=== PATIENT | female | born 1990 | race Two or more races ===

== ENCOUNTER 2016-07-28 13:29 | Emergency (ER) | payer OTHER ==
[~2016-07-28] VITALS: Ht 154.9 cm; Wt 54.4 kg
[2016-07-28 14:15] VITALS: BP 103/62
[2016-07-28] MEDS ORDERED: LIDO20SO PO (15:24)
--- NOTE | 2016-07-28 15:25 | PHYS DOC ---
Past Medical History Past Medical History: No Pertinent History Past Surgical History: No Surgical History Alcohol Use: None Drug Use: None Adult General Chief Complaint Chief Complaint: SORE THROAT HPI HPI Patient is a 26 year old female who presents with sore throat and subjective fever since yesterday. Patient is in the ED with 3 other family members with the same complaint. Review of Systems Review of Systems Constitutional: Subjective fever Eyes: Denies change in visual acuity, redness, or eye pain [] HENT: sore throat [] Respiratory: Denies cough or shortness of breath [] Cardiovascular: No additional information not addressed in HPI [] GI: Denies abdominal pain, nausea, vomiting, bloody stools or diarrhea [] : Denies dysuria or hematuria [] Musculoskeletal: Denies back pain or joint pain [] Integument: Denies rash or skin lesions [] Neurologic: Denies headache, focal weakness or sensory changes [] Endocrine: Denies polyuria or polydipsia [] Allergies Allergies Allergies Coded Allergies Type Severity Reaction Last Updated Verified No Known Drug Allergies 07/28/16 No Physical Exam Physical Exam Constitutional: Well developed, well nourished, no acute distress, non-toxic appearance. [] HENT: Normocephalic, atraumatic, bilateral external ears normal, oropharynx moist, no oral exudates, nose normal. [] Eyes: PERRLA, EOMI, conjunctiva normal, no discharge. [] Neck: Normal range of motion, no tenderness, supple, no stridor. [] Cardiovascular:Heart rate regular rhythm, no murmur [] Lungs & Thorax: Bilateral breath sounds clear to auscultation [] Abdomen: Bowel sounds normal, soft, no tenderness, no masses, no pulsatile masses. [] Skin: Warm, dry, no erythema, no rash. [] Back: No tenderness, no CVA tenderness. [] Extremities: No tenderness, no cyanosis, no clubbing, ROM intact, no edema. [] Neurologic: Alert and oriented X 3, normal motor function, normal sensory function, no focal deficits noted. [] Psychologic: Affect normal, judgement normal, mood normal. [] Current Patient Data Vital Signs Vital Signs Date Time Temp Pulse Resp B/P Pulse Ox O2 Delivery O2 Flow Rate FiO2 07/28/16 14:15 98.2 104 20 99 Room Air 98.2 EKG EKG [] Radiology/Procedures Radiology/Procedures [] Course & Med Decision Making Course & Med Decision Making Pertinent Labs and Imaging studies reviewed. (See chart for details) This is a well-appearing patient in the ED with complaint of sore throat and subjective fevers. Patient is afebrile. Symptoms are viral. Recommended Tylenol/ Motrin for fever or pain. Saltwater gargles recommended. Throat. Follow-up with primary care doctor in one week. Dragon Disclaimer Dragon Disclaimer This electronic medical record was generated, in whole or in part, using a voice recognition dictation system. Departure Departure Impression: Primary Impression: Fever Additional Impression: Viral pharyngitis Disposition: HOME, SELF-CARE Condition: STABLE Referrals: JULITO DOAN MD (PCP) Follow-up with your own doctor in one week Patient Instructions: Viral Pharyngitis Additional Instructions: You were seen for viral pharyngitis and subjective fevers. Take Tylenol/ Motrin for fever. Use saltwater gargles. Take the prescribed medicines as needed. Follow-up with your own doctor in one week, come back to the emergency room if worsening or concerning symptoms. Scripts Lidocaine Hcl (Lidocaine Hcl Viscous)20 Mg/1 Ml Solution5 Ml PO TID #100 ML Prov:DONTA ARROYO APRN 07/28/16 Problem Qualifiers Primary Impression: Fever Fever type: unspecified Qualified Code: R50.9 - Fever, unspecified DONTA ARROYO APRN Jul 28, 2016 15:25
== END 2016-07-28 15:41 | disposition home or self-care (01) ==
LOC: ER 13:29
DX: J02.8 Acute pharyngitis due to other specified organisms (principal); B97.89 Other viral agents as the cause of diseases classified elsewhere; R50.9 Fever, unspecified
CPT/HCPCS: 99283

== ENCOUNTER 2018-01-23 13:11 | Emergency (ER) | payer OTHER ==
[~2018-01-23] VITALS: Ht 157.5 cm; Wt 54.4 kg
[~2018-01-23 13:11] MED LIST: LIDO20SO PO
[2018-01-23] MEDS ORDERED: AMOX1TAB61 PO (14:19)
--- NOTE | 2018-01-23 14:19 | PHYS DOC ---
Past Medical History Past Medical History: No Pertinent History Past Surgical History: No Surgical History Alcohol Use: None Drug Use: None Adult General Chief Complaint Chief Complaint: SORE THROAT HPI HPI Patient is a 27 year old male who presents to the emergency room with complaints of a sore throat for the last 5 days. In addition, she complains of a cough with yellow thick mucus produced, headaches, and runny nose for the last 7-10 days. She denies any ear pain, body aches, fatigue, rash, shortness of breath, wheezing, vision changes, nausea, vomiting, or diarrhea. She states that she has been feverish at night for the last 5 days, however she has not measured her temperature. Review of Systems Review of Systems Constitutional: Denies chills, reports tactile fevers at night [] Eyes: Denies change in visual acuity, redness, or eye pain [] HENT: Denies nasal congestion, reports sore throat with runny nose for the last 5 days[] Respiratory: Denies wheezing or shortness of breath; reports productive cough with thick yellow mucus produced for the last 7-10 days [] Cardiovascular: As chest pain GI: Denies abdominal pain, nausea, vomiting, or diarrhea [] Musculoskeletal: Denies back pain or joint pain [] Integument: Denies rash or skin lesions [] Neurologic: Denies focal weakness or sensory changes; reports frontal headache for the last 7-10 days off-and-on [] All other systems were reviewed and found to be within normal limits, except as documented in this note. Allergies Allergies Allergies Coded Allergies Type Severity Reaction Last Updated Verified No Known Drug Allergies 07/28/16 No Physical Exam Physical Exam Constitutional: Well developed, well nourished, no acute distress, non-toxic appearance. [] HENT: Normocephalic, atraumatic, bilateral external ears normal, bilateral TMs are normal, cobblestone appearance of posterior pharynx with thick yellow postnasal drainage, oropharynx moist, no oral exudates, 1+ tonsils bilaterally, tenderness to palpation of frontal sinuses bilaterally, nose normal. [] Eyes: PERRLA, conjunctiva normal, no discharge. [] Neck: Normal range of motion, no tenderness, supple, no stridor. [] Cardiovascular:Heart rate regular rhythm, no murmur [] Lungs & Thorax: Bilateral breath sounds clear to auscultation [] Skin: Warm, dry, no erythema, no rash. [] Extremities: No tenderness, no cyanosis, no edema. [] Neurologic: Alert and oriented X 3, normal motor function, normal sensory function, no focal deficits noted. [] Psychologic: Affect normal, judgement normal, mood normal. [] EKG EKG [] Radiology/Procedures Radiology/Procedures [] Course & Med Decision Making Course & Med Decision Making Pertinent Labs and Imaging studies reviewed. (See chart for details) Patient is a 27-year-old female who presented to the emergency room with complaints of sore throat, cough, headaches, and tactile fever. VSS, clinically she presents as sinusitis, treated as such. Patient verbalized an understanding of home care, follow-up, prescription, and return to ER instructions with no further questions or concerns. [] Dragon Disclaimer Dragon Disclaimer This electronic medical record was generated, in whole or in part, using a voice recognition dictation system. Departure Departure Impression: Primary Impression: Acute sinusitis, unspecified Disposition: 01 HOME, SELF-CARE Condition: STABLE Referrals: NO PCP (PCP) Patient Instructions: Sinusitis, [id number] Additional Instructions: Fill prescription and use as directed. You may take [id number] cough medication as needed for relief of your cough. Increase clear fluids. Follow-up with your primary care doctor in the next 1-2 days. Return to the emergency room if her symptoms worsen. Scripts Amoxicillin/Potassium Clav (AUGMENTIN 875-125 TABLET) 1 Each Tablet 1 TAB PO BID for 10 Days, #20 TAB Prov: GINA CORREA APRN 01/23/18 GINA CORREA APRN Jan 23, 2018 14:19
[2018-01-23 14:26] VITALS: BP 100/58
== END 2018-01-23 15:12 | disposition home or self-care (01) ==
LOC: ER 13:11
DX: J01.90 Acute sinusitis, unspecified (principal)
CPT/HCPCS: 99283

== ENCOUNTER 2018-09-24 13:48 | Emergency (ER) | payer OTHER ==
[~2018-09-24] VITALS: Ht 154.9 cm; Wt 54.4 kg
[~2018-09-24 13:48] MED LIST changes: +AMOX1TAB61 PO
[2018-09-24 14:15] VITALS: BP 95/54
--- NOTE | 2018-09-24 14:42 | PHYS DOC ---
Past Medical History Past Medical History: No Pertinent History Past Surgical History: No Surgical History Alcohol Use: None Drug Use: None Adult General Chief Complaint Chief Complaint: SORE THROAT HPI HPI Patient is a 28 year old female with no significant medical history who presents to the ED today complaining of sore throat and subjective fevers for 4- 5 days. Patient denies any cough or congestion. Review of Systems Review of Systems Constitutional: Reports subjective fevers Eyes: Denies change in visual acuity, redness, or eye pain [] HENT: Reports sore throat. Denies nasal congestion Respiratory: Denies cough or shortness of breath [] Cardiovascular: No additional information not addressed in HPI [] GI: Denies abdominal pain, nausea, vomiting, bloody stools or diarrhea [] : Denies dysuria or hematuria [] Musculoskeletal: Denies back pain or joint pain [] Integument: Denies rash or skin lesions [] Neurologic: Denies headache, focal weakness or sensory changes [] All other systems were reviewed and found to be within normal limits, except as documented in this note. Allergies Allergies Allergies Coded Allergies Type Severity Reaction Last Updated Verified No Known Drug Allergies 07/28/16 No Physical Exam Physical Exam Constitutional: Well developed, well nourished, no acute distress, non-toxic appearance. [] HENT: Normocephalic, atraumatic, bilateral external ears normal, oropharynx moist, no oral exudates, nose normal. [] Eyes: PERRLA, EOMI, conjunctiva normal, no discharge. [] Neck: Normal range of motion, no tenderness, supple, no stridor. [] Cardiovascular:Heart rate regular rhythm, no murmur [] Lungs & Thorax: Bilateral breath sounds clear to auscultation [] Abdomen: Bowel sounds normal, soft, no tenderness, no masses, no pulsatile masses. [] Skin: Warm, dry, no erythema, no rash. [] Back: No tenderness, no CVA tenderness. [] Extremities: No tenderness, no cyanosis, no clubbing, ROM intact, no edema. [] Neurologic: Alert and oriented X 3, normal motor function, normal sensory function, no focal deficits noted. [] Psychologic: Affect normal, judgement normal, mood normal. [] Current Patient Data Vital Signs Vital Signs Date Time Temp Pulse Resp B/P (MAP) Pulse Ox O2 Delivery O2 Flow Rate FiO2 4/10/19 14:15 98.4 85 16 95/54 (68) 100 Room Air 98.4 EKG EKG [] Radiology/Procedures Radiology/Procedures [] Course & Med Decision Making Course & Med Decision Making Pertinent Labs and Imaging studies reviewed. (See chart for details) This is a 28-year-old female patient presenting to the ED today with sore throat and subjective fevers for 4-5 days. Negative rapid strep. Patient is afebrile in the ED. Symptoms are viral. Discharged to home. Instructed to take Tylenol/Motrin for pain or fever. Saltwater gargles recommended. Follow-up with primary care doctor in 1-2 weeks. Dragon Disclaimer Dragon Disclaimer This electronic medical record was generated, in whole or in part, using a voice recognition dictation system. Departure Departure Impression: Primary Impression: Viral pharyngitis Additional Impression: Fever Disposition: HOME, SELF-CARE Condition: STABLE Referrals: NO PCP (PCP) Follow-up with your doctor in 1-2 weeks. Patient Instructions: Fever, Viral Pharyngitis Additional Instructions: You were evaluated in the medicine for sore throat. Your strep test is negative , your symptoms currently could be viral or seasonal allergies. Continue taking the Ibuprofen or Tylenol as needed for pain or fever. Take Zyrtec or Claritin as well. Use saltwater gargles. Follow-up with your doctor in 1-2 weeks. Scripts Cetirizine Hcl (ZYRTEC) 10 Mg Tablet 1 TAB PO DAILY, #30 TAB 2 Refills Prov: DONTA ARROYO APRN 09/24/18 Problem Qualifiers Additional Impression: Fever Fever type: unspecified Qualified Codes: R50.9 - Fever, unspecified DONTA ARROYO [employer] Sep 24, 2018 14:42
[2018-09-24] MEDS ORDERED: CETI10TA22 PO (15:18)
== END 2018-09-24 15:23 | disposition home or self-care (01) ==
LOC: ER 13:48
DX: J02.8 Acute pharyngitis due to other specified organisms (principal); B97.89 Other viral agents as the cause of diseases classified elsewhere; R50.9 Fever, unspecified
CPT/HCPCS: 87070; 87880; 96365; 96375; 99283; 99284-25

== ENCOUNTER 2019-02-06 09:03 | Emergency (ER) | payer OTHER ==
[~2019-02-06] VITALS: Ht 157.5 cm; Wt 54.4 kg
[~2019-02-06 09:03] MED LIST changes: +CETI10TA22 PO
[2019-02-06 09:05] VITALS: BP 110/73
[2019-02-06] MEDS ORDERED: CEPH-264 PO (09:28)
[2019-02-06] MEDS ORDERED: PHEN-318 PO (09:28)
--- NOTE | 2019-02-06 09:28 | PHYS DOC ---
Past Medical History Past Medical History: No Pertinent History Past Surgical History: No Surgical History Alcohol Use: None Drug Use: None Adult General Chief Complaint Chief Complaint: FEVER HPI HPI 28-year-old female presents with 3 day history of dysuria with bilateral flank pain and subjective fever/chills. Patient reports her fever seems to occur only at night. Denies . Denies known trauma. Denies hematuria. Patient reports taking Tylenol prior to arrival. Review of Systems Review of Systems Constitutional: Denies fever or chills Eyes: Denies redness or eye pain HENT: Denies nasal congestion or sore throat Respiratory: Denies cough or shortness of breath Cardiovascular: Denies chest pain or palpitations GI: Reports suprapubic abdominal pain; denies nausea or vomiting : Denies dysuria or hematuria Musculoskeletal: Reports back/flank eye pain or joint pain Integument: Denies rash or skin lesions Neurologic: Denies headache, focal weakness or sensory changes Complete systems were reviewed and found to be within normal limits, except as documented in this note. Allergies Allergies Allergies Coded Allergies Type Severity Reaction Last Updated Verified No Known Drug Allergies 07/28/16 No Physical Exam Physical Exam Constitutional: Well developed, well nourished, no acute distress, non-toxic appearance HENT: Normocephalic, atraumatic, oropharynx moist Eyes: Conjunctiva normal, no discharge Neck: Normal range of motion, no tenderness, supple Cardiovascular: Heart rate normal, regular rhythm Lungs & Thorax: Bilateral breath sounds clear to auscultation, no wheezing Abdomen: Soft, very mild suprapubic tenderness to palpation Skin: Warm, dry, no erythema, no rash Back: No tenderness, minimal CVA tenderness Extremities: No tenderness, ROM intact, no edema Neurologic: Alert and oriented X 3, no focal deficits noted Psychologic: Affect normal, judgement normal Current Patient Data Vital Signs Vital Signs Date Time Temp Pulse Resp B/P (MAP) Pulse Ox O2 Delivery O2 Flow Rate FiO2 02/06/19 09:05 98.1 110 14 110/73 (85) 100 Room Air 98.1 Lab Values Laboratory Tests Test 02/06/19 09:20 02/06/19 09:22 Urine Collection Type Void Urine Color Yellow Urine Clarity Cloudy Urine pH 5.5 Urine Specific [place] 1.010 Urine Protein 30 mg/dL (NEG-TRACE) Urine Glucose (UA) Negative mg/dL (NEG) Urine Ketones (Stick) Negative mg/dL (NEG) Urine Blood Small (NEG) Urine Nitrite Positive (NEG) Urine Bilirubin Negative (NEG) Urine Urobilinogen Dipstick 0.2 mg/dL (0.2 mg/dL) Urine Leukocyte Esterase Large (NEG) Urine RBC Fobs /HPF (0-2) Urine WBC Tntc /HPF (0-4) Urine Squamous Epithelial Cells Few /LPF Urine Bacteria Moderate /HPF (0-FEW) POC Urine HCG, Qualitative Hcg negative (Negative) EKG EKG [] Radiology/Procedures Radiology/Procedures [] Course & Med Decision Making Course & Med Decision Making Pertinent Lab studies reviewed. (See chart for details) Patient presents with history of present illness and physical exam concerning for possible urinary tract infection/kidney infection. Patient does have some minimal flank pain. Symptomatic medication offered which patient declined until UA results. UA with signs of infection. Symptomatic treatment provided. Empiric antibiotics initiated. Patient stable for discharge with outpatient follow-up with PCP. Discussed findings and plan with patient, who acknowledges understanding and agreement. Dragon Disclaimer Dragon Disclaimer This electronic medical record was generated, in whole or in part, using a voice recognition dictation system. Departure Departure Impression: Primary Impression: Urinary tract infection Disposition: HOME, SELF-CARE Condition: STABLE Referrals: NO PCP (PCP) Patient Instructions: Urinary Tract Infection, [id number] Scripts Cephalexin (KEFLEX) 500 Mg Capsule 500 MG PO TID for 7 Days, #21 CAP Prov: ARTIE VASQUEZ DO 02/06/19 Phenazopyridine Hcl (PYRIDIUM) 200 Mg Tablet 200 MG PO TID PRN PRN for DYSURIA, #6 TAB Prov: ARTIE VASQUEZ DO 02/06/19 Problem Qualifiers Primary Impression: Urinary tract infection Urinary tract infection type: acute pyelonephritis Qualified Codes: N10 - Acute pyelonephritis ARTIE VASQUEZ DO Feb 06, 2019 09:28
[2019-02-06 09:31] LABS: BILIRUBIN,URINE NEGATIVE (NEG); CLARITY,URINE CLOUDY; COLOR,URINE YELLOW; NITRITE,URINE POSITIVE (NEG); PH,URINE 5.5; PROTEIN,URINE 30 mg/dL (NEG-TRACE); UROBILINOGEN,URINE 0.2 mg/dL (0.2 mg/dL)
[2019-02-06 09:38] LABS: BACTERIA,URINE MODERATE /HPF (0-FEW); RBC,URINE FOBS /HPF (0-2); SQUAMOUS EPITHELIAL CELL,UR FEW /LPF; WBC,URINE TNTC /HPF (0-4)
[2019-02-06] MEDS ORDERED: CEPHALEXIN 250 MG CAPSULE. PO ONE (10:15)
[2019-02-06] MEDS ORDERED: PHENAZOPYRIDINE 200 MG TABLET. PO ONE (10:15)
== END 2019-02-06 10:47 | disposition home or self-care (01) ==
LOC: ER 09:03
DX: N10 Acute pyelonephritis (principal)
CPT/HCPCS: 81001; 81025; 87086; 99283; 99284

== ENCOUNTER 2019-09-12 12:43 | Emergency (ER) | payer OTHER ==
[~2019-09-12] VITALS: Ht 157.5 cm; Wt 55.0 kg
[~2019-09-12 12:43] MED LIST changes: +CEPH-264 PO; -CETI10TA22 PO; +CETI10TA24 PO; +PHEN-318 PO
[2019-09-12 13:38] LABS: INFLUENZA A PATIENT NEGATIVE (NEGATIVE); INFLUENZA B PATIENT NEGATIVE (NEGATIVE)
--- NOTE | 2019-09-12 14:19 | PHYS DOC ---
Past Medical History Past Medical History: No Pertinent History Past Surgical History: No Surgical History Smoking Status: Never Smoker Alcohol Use: None Drug Use: None Adult General Chief Complaint Chief Complaint: SORE THROAT HPI HPI Patient is a 29 year old female who presents to the emergency department with complaints of a tactile fever and sore throat for the last 2 days. Patient denies taking her temperature, she does not have a thermometer. She reports that she took 2 Tylenol at approximately 10:00 this morning. She denies any known contact with anyone who has Covid-19, she denies any recent travel. Patient denies any cough, shortness of breath, nausea, vomiting, diarrhea, wheezing, chest pain, or palpitations. Review of Systems Review of Systems Complete ROS is negative unless otherwise noted in HPI. Allergies Allergies Allergies Coded Allergies Type Severity Reaction Last Updated Verified No Known Drug Allergies 07/28/16 No Physical Exam Physical Exam See Above Constitutional: Well developed, well nourished, no acute distress, non-toxic appearance. [] HENT: Normocephalic, atraumatic, bilateral external ears normal, oropharynx moist, no oral exudates, nose normal. [] Eyes: PERRLA, EOMI, conjunctiva normal, no discharge. [] Neck: Normal range of motion, no tenderness, supple, no stridor. [] Cardiovascular:Heart rate regular rhythm, no murmur [] Lungs & Thorax: Bilateral breath sounds clear to auscultation [] Skin: Warm, dry, no erythema, no rash. [] Extremities: No cyanosis, ROM intact, no edema. [] Neurologic: Alert and oriented X 3, no focal deficits noted. [] Psychologic: Affect normal, judgement normal, mood normal. [] Current Patient Data Vital Signs Vital Signs Date Time Temp Pulse Resp B/P (MAP) Pulse Ox O2 Delivery O2 Flow Rate FiO2 09/12/19 12:55 99.0 83 16 110/65 (80) 97 Room Air 99.0 Lab Values Laboratory Tests Test 09/12/19 12:56 Influenza Type A Antigen Negative (NEGATIVE) Influenza Type B Antigen Negative (NEGATIVE) EKG EKG [] Radiology/Procedures Radiology/Procedures [] Course & Med Decision Making Course & Med Decision Making Pertinent Labs and Imaging studies reviewed. (See chart for details) [] Dragon Disclaimer Dragon Disclaimer This electronic medical record was generated, in whole or in part, using a voice recognition dictation system. Departure Departure Impression: Primary Impression: URI (upper respiratory infection) Additional Impression: Pharyngitis, acute Disposition: 01 HOME, SELF-CARE Condition: STABLE Referrals: NO PCP (PCP) Patient Instructions: Upper Respiratory Infection, Adult, [id number], Viral and Bacterial Pharyngitis, [id number] Additional Instructions: Recommend warm salt water gargles as needed for relief of discomfort. Alternate Tylenol and ibuprofen as needed for fever/pain. Follow-up with primary care doctor if symptoms persist. Return to the ER if symptoms worsen. Thank you for visiting [facility]. We appreciate you trusting us with your care. If any additional problems come up please don't hesitate to return to visit us. Follow up with your primary care provider so they can plan additional care if needed and know about the problem that you had today. If symptoms worsen come back to the Emergency Department. Any concerning symptoms that start such as chest pain, shortness of air, weakness or numbness on one side of the body, running high fevers or any other concerning symptoms return to the ER. You have a viral syndrome which may include symptoms like muscle aches, fevers, chills, runny nose, cough, sneezing, sore throat, nausea, vomiting, or diarrhea. One of the potential viruses that you may have is SARS-CoV-2, the virus that causes COVID-19, also known as the Coronavirus. You are just as likely to have a different viral infection such as the common cold, flu, etc. Most patients with the Coronavirus have mild symptoms and recover on their own. Resting, staying hydrated, and sleep based on known cases can be helpful. As of todays visit, you are well enough to go home and treat your symptoms with oral fluids and over the counter medications. Coronavirus testing is not performed on most people with mild symptoms who are being discharged from the emergency department. If Coronavirus testing was performed today the results will not be available for possibly up to 3-4 days. If your result is positive you will be contacted. Please follow the following precautions at home: 1) Stay home except to get medical care. 2) As advised by the CDC, we recommend that you stay in your home and minimize contact with other people. We do not want you to spread the infection. 3) Those who are older or have significant medical issues may have more severe symptoms from this infection. We recommend self-isolation FOR AT LEAST 7 DAYS after your 1st day of symptoms. AFTER you feel better please wait AT LEAST ANOTHER WEEK before returning to regular activities and being around other people. 4) IF you become sicker and have difficulty breathing, chest pain, are unable to eat/drink, severe vomiting, diarrhea, or weakness you may need to return to the Emergency Department. 5) You should restrict activities outside of your home, except for getting medical care. DO NOT go to work, school, or public areas. Avoid using public transportation, ride sharing, or taxis. 6) Separate yourself from other people in your home. You should use a separate bathroom if possible. 7) Avoid sharing personal household items such as dishes, cups, eating utensils, towels, etc. 8) Clean all high touch surfaces every day (door knobs, counter tops, etc). Use a household cleaning spray or wipe per label instructions. 9) Clean your hands often. Wash your hands with soap and water for at least 20 seconds. 10) Cover your mouth and nose when you cough or sneeze. 11) Throw used tissues in the trash and immediately wash your hands. For additional resources please visit the CDC website or the [facility] ([phone]), you may also call 211 for further information. Problem Qualifiers Primary Impression: URI (upper respiratory infection) URI type: unspecified URI Qualified Codes: J06.9 - Acute upper respiratory infection, unspecified Additional Impression: Pharyngitis, acute Pharyngitis/tonsillitis etiology: unspecified etiology Qualified Codes: J02.9 - Acute pharyngitis, unspecified GINA CORREA APRN Sep 12, 2019 14:19
[2019-09-12 14:38] VITALS: BP 105/58
== END 2019-09-12 14:38 | disposition home or self-care (01) ==
LOC: ER 12:43
DX: J06.9 Acute upper respiratory infection, unspecified (principal); J02.9 Acute pharyngitis, unspecified; R50.9 Fever, unspecified
CPT/HCPCS: 87070; 87804; 87880; 99283

== ENCOUNTER 2020-02-23 11:14 | Emergency (ER) | payer OTHER ==
[~2020-02-23] VITALS: Ht 154.9 cm; Wt 54.5 kg
[~2020-02-23 11:14] MED LIST changes: -CETI10TA24 PO; +CETI10TA74 PO
[2020-02-23 11:41] LABS: BILIRUBIN,URINE NEGATIVE (NEG); CLARITY,URINE CLEAR; COLOR,URINE YELLOW; NITRITE,URINE NEGATIVE (NEG); PROTEIN,URINE NEGATIVE (NEG-TRACE); UROBILINOGEN,URINE 0.2 mg/dL (0.2 mg/dL)
--- NOTE | 2020-02-23 11:42 | PHYS DOC ---
Past Medical History Past Medical History: No Pertinent History Past Surgical History: No Surgical History Smoking Status: Never Smoker Alcohol Use: None Drug Use: None General Adult EDM: Chief Complaint: BACK PAIN OR INJURY HPI: HPI: Patient is a 29 year old female who presents with fever for 1 week she has had intermittent low back pain more so on the right side with sharp shooting pains that go down the back of her leg on the right side. 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 She states she does not remember injuring her back. She states it does hurt worse with standing and sitting and laying back. She states that she took Tylenol yesterday and it does help with the pain for a short period. She states that her past history is a urinary tract infection she would like to be sure that she does not have another infection. Patient denies abdominal pain, dysuria, nausea, vomiting, fever, diarrhea, headache, chest pain, shortness of breath, cough, numbness or tingling, loss of bowel or bladder, dizziness, focal weakness. She rates her discomfort at this time an 8 out of 10. She has not taken anything for her pain today. She states that she does not take any medications. Review of Systems: Review of Systems: Constitutional: Denies fever or chills. [] Eyes: Denies change in visual acuity. [] HENT: Denies nasal congestion or sore throat. [] Respiratory: Denies cough or shortness of breath. [] Cardiovascular: Denies chest pain or edema. [] GI: Denies abdominal pain, nausea, vomiting, bloody stools or diarrhea. [] : Denies dysuria. [] Musculoskeletal: Low back pain with radiation down the right back of leg or joint pain. [] Integument: Denies rash. [] Neurologic: Denies headache, focal weakness or sensory changes. [] Endocrine: Denies polyuria or polydipsia. [] Lymphatic: Denies swollen glands. [] Psychiatric: Denies depression or anxiety. [] Heart Score: Risk Factors: Risk Factors: DM, Current or recent (<one month) smoker, HTN, HLP, family history of CAD, obesity. Risk Scores: Score 0 - 3: 2.5% MACE over next 6 weeks - Discharge Home Score 4 - 6: 20.3% MACE over next 6 weeks - Admit for Clinical Observation Score 7 - 10: 72.7% MACE over next 6 weeks - Early Invasive Strategies Allergies: Allergies: Allergies Coded Allergies Type Severity Reaction Last Updated Verified No Known Drug Allergies 07/28/16 No Physical Exam: PE: Constitutional: Well developed, well nourished, no acute distress, non-toxic appearance. [] HENT: Normocephalic, atraumatic, bilateral external ears normal, oropharynx moist, no oral exudates, nose normal. [] Eyes: PERRLA, EOMI, conjunctiva normal, no discharge. [] Neck: Normal range of motion, no tenderness, supple, no stridor. [] Cardiovascular:Heart rate regular rhythm, no murmur [] Lungs & Thorax: Bilateral breath sounds clear to auscultation [] Abdomen: Bowel sounds normal, soft, no tenderness, no masses, no pulsatile masses. [] Skin: Warm, dry, no erythema, no rash. [] Back: Right low back tenderness, no CVA tenderness. [] Extremities: No tenderness, no cyanosis, no clubbing, ROM intact, no edema. [] Neurologic: Alert and oriented X 3, normal motor function, normal sensory function, no focal deficits noted. [] Psychologic: Affect normal, judgement normal, mood normal. [] EKG: EKG: [] Radiology/Procedures: Radiology/Procedures: [] Course & Med Decision Making: Course & Med Decision Making Pertinent Labs and Imaging studies reviewed. (See chart for details) See HPI. Alert and oriented x4. Ambulatory with a steady gait. Speaks in full clear sentences. She moves all extremities equally and has equal strengths. No extremity edema. Skin pink warm and dry. No saddle paresthesias. Analysis shows no acute findings. Patient has given ibuprofen in the ED and sent home to take Ibuprofen, Orphenadrine and Medrol dose pack. [] Dragon Disclaimer: Dragon Disclaimer: This electronic medical record was generated, in whole or in part, using a voice recognition dictation system. Departure Departure Impression: Primary Impression: Low back pain Qualified Codes: M54.41 - Lumbago with sciatica, right side Disposition: 01 HOME, SELF-CARE Condition: STABLE Referrals: NO PCP (PCP) Patient Instructions: Low Back Strain with [facility], Sciatica with [facility] Additional Instructions: Follow-up with your primary care physician. Take medication as it is ordered. Take medication with food and do not drink or drive when taking the muscle relaxer as it will make you sleepy. Try heating pad on your back to help with your pain. Scripts Ibuprofen (IBUPROFEN) 600 Mg Tablet 600 MG PO PRN Q6HRS PRN for INFLAMMATION, #20 TAB Prov: MONA WILDE APRN 02/23/20 Methylprednisolone (MEDROL) 4 Mg Tab.ds.pk 1 PKG PO UD, #1 PKG Prov: MONA WILDE APRN 02/23/20 Orphenadrine Citrate (ORPHENADRINE CITRATE) 100 Mg Tablet.er 1 TAB PO BID, #14 TAB 1 Refill Prov: MONA WILDE APRN 02/23/20 Justicifation of Admission Dx: Justifications for Admission: Justification of Admission Dx: N/A MONA WILDE APRN Feb 23, 2020 11:42
[2020-02-23 11:50] LABS: BACTERIA,URINE FEW /HPF (0-FEW); RBC,URINE 0 /HPF (0-2); SQUAMOUS EPITHELIAL CELL,UR MOD /LPF
[2020-02-23 11:52] VITALS: BP 104/62
[2020-02-23] MEDS ORDERED: IBUP-1007 PO (11:55)
[2020-02-23] MEDS ORDERED: ORPH100T PO (11:55)
[2020-02-23] MEDS ORDERED: METH4TAB2 PO (11:55)
== END 2020-02-23 12:21 | disposition home or self-care (01) ==
LOC: ER 11:14
DX: M54.41 Lumbago with sciatica, right side (principal); R50.9 Fever, unspecified
CPT/HCPCS: 81001; 81025; 99283